=== PATIENT | female | born 1990 | race Caucasian/White ===

== ENCOUNTER 2018-01-14 18:41 | Emergency (ER) | payer SELFPAY ==
[2016-06-22 15:15] VITALS: BP 120/61
[~2018-01-14 18:41] MED LIST: CIPR500T94 PO; DIAZ5TAB PO; HYDR-971 PO; NITR100C62 PO; NORE-83 PO; PHEN-318 PO; SULF1TAB24 PO
== END 2018-01-14 18:50 | disposition left against medical advice (07) ==
LOC: ER 18:41
DX: R10.9 Unspecified abdominal pain (principal); Z53.21 Procedure and treatment not carried out due to patient leaving prior to being seen by health care provider

== ENCOUNTER 2018-02-01 03:23 | Emergency (ER) | payer SELFPAY ==
[~2018-02-01] VITALS: Ht 162.6 cm; Wt 54.4 kg
[2018-02-01] MEDS ORDERED: IV NORMAL SALINE 1,000ML 1,000 ML IV ONE (03:45)
[2018-02-01] MEDS ORDERED: ZIPRASIDONE IM 20 MG VIAL. IM ONE (04:15)
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
[2018-02-01 05:24] LABS: BASO # 0.1 x10^3/uL (0.0-0.2); BASO % 1 % (0-3); EOS # 0.4 x10^3/uL (0.0-0.7); EOS % 6 % (0-3); HEMATOCRIT 35.5 % (36.0-47.0); HEMOGLOBIN 11.9 g/dL (12.0-15.5); LYMPH # 3.3 x10^3/uL (1.0-4.8); LYMPH % 49 % (24-48); MEAN CORPUSCULAR HEMOGLOBIN 28 pg (25-35); MEAN CORPUSCULAR HGB CONC 33 g/dL (31-37); MEAN CORPUSCULAR VOLUME 84 fL (79-100); MONO # 0.5 x10^3/uL (0.0-1.1); MONO % 7 % (0-9); NEUT # 2.5 x10^3uL (1.8-7.7); NEUT % 37 % (31-73); PLATELET COUNT 436 x10^3/uL (140-400); RED BLOOD COUNT 4.21 x10^6/uL (3.50-5.40); RED CELL DISTRIBUTION WIDTH 16.4 % (11.5-14.5); WHITE BLOOD COUNT 6.7 x10^3/uL (4.0-11.0)
[2018-02-01 05:36] LABS: ALBUMIN 3.7 g/dL (3.4-5.0); ALBUMIN/GLOBULIN RATIO 0.9 (1.0-1.7); CREATININE 0.8 mg/dL (0.6-1.0); GFR 85.4; POTASSIUM 3.8 mmol/L (3.5-5.1); TOTAL BILIRUBIN 0.1 mg/dL (0.2-1.0); TOTAL PROTEIN 7.7 g/dL (6.4-8.2)
[2018-02-01 09:24] VITALS: BP 108/67
[2018-02-01 09:58] LABS: U PREG PATIENT NEGATIVE (NEG)
== END 2018-02-01 10:15 | disposition home or self-care (01) ==
LOC: ER 03:23
DX: F10.121 Alcohol abuse with intoxication delirium (principal); F17.210 Nicotine dependence, cigarettes, uncomplicated; Z87.440 Personal history of urinary (tract) infections; Z88.5 Allergy status to narcotic agent
CPT/HCPCS: 36415; 80053; 81025; 85025; 96372; 99284; G0480; J3486

== ENCOUNTER 2019-07-05 13:40 | Inpatient (IN) | payer SELFPAY ==
[~2019-07-05] VITALS: Ht 162.6 cm; Wt 54.0 kg
[~2019-07-05 13:40] MED LIST changes: +HYDR-3165 PO; -HYDR-971 PO
[2019-07-05] MEDS ORDERED: IPRATRPIUM/ALBUTEROL 0.5/2.5MG 3 ML NEBU. ONE (13:43)
[2019-07-05] MEDS ORDERED: DEXAMETHASONE 4 MG TABLET PO ONE (14:00)
[2019-07-05] MEDS ORDERED: IPRATRPIUM/ALBUTEROL 0.5/2.5MG 3 ML NEBU. NEB ONE ×2 (14:00→15:00)
--- NOTE | 2019-07-05 14:46 | RAD ---
CHEST PA LATERAL History: Cough, shortness of air Comparison: August 13, 2007 Findings: 2 views of the chest are submitted. There is no infiltrate, pneumothorax, or effusion. Pericardial cardiac silhouette is within normal limits in size. Impression: 1. There is no radiographic evidence of acute cardiopulmonary disease. Electronically signed by: Papa Miller MD (07/05/2019 2:43 PM) [facility]
--- NOTE | 2019-07-05 14:49 | PHYS DOC ---
Past History Past Medical History: Asthma, UTI Past Surgical History: No Surgical History Smoking: Quit Greater Than 1 Year Alcohol Use: Sober Drug Use: None Adult General Chief Complaint Chief Complaint: SHORTNESS OF BREATH HPI HPI 28-year-old female presents with 4 day history of progressive dyspnea and whe ezing. Patient with past medical history of asthma. Reports reports feels she cannot catch her breath. Reports some associated nasal congestion and subjective fever and chills. Denies known sick contacts. Patient does have history of former smoking. Denies . Denies trauma. Denies leg swelling or calf tenderness. Denies history of DVT or PE. Review of Systems Review of Systems Constitutional: Reports subjective fever and chills Eyes: Denies redness or eye pain HENT: Reports nasal congestion and sore throat Respiratory: Reports productive cough, wheezing, and shortness of breath Cardiovascular: Denies chest pain or palpitations GI: Denies abdominal pain, nausea, or vomiting : Denies dysuria or hematuria Musculoskeletal: Denies back pain or joint pain Integument: Denies rash or skin lesions Neurologic: Denies headache, focal weakness or sensory changes Complete systems were reviewed and found to be within normal limits, except as documented in this note. Current Medications Current Medications Current Medications Medications (Trade) Dose Ordered Sig/Santi Start Time Stop Time Status Last Admin Dose Admin Albuterol/ Ipratropium (Duoneb) 3 ml 1X ONCE 07/05/19 14:00 07/05/19 14:01 DC Dexamethasone (Decadron) 10 mg 1X ONCE 07/05/19 14:00 07/05/19 14:01 DC Allergies Allergies Allergies Coded Allergies Type Severity Reaction Last Updated Verified codeine Allergy Intermediate rash 03/12/14 Yes Physical Exam Physical Exam Constitutional: Well developed, well nourished, uncomfortable, non-toxic appearance HENT: Normocephalic, atraumatic, oropharynx moist, nasal congestion noted, TMs clear Eyes: Conjunctiva normal, no discharge Neck: Normal range of motion, no tenderness, supple Cardiovascular: Heart rate normal, regular rhythm Lungs & Thorax: Bilateral breath sounds diminished at bases, poor aeration, upper lobe scattered wheezing Abdomen: Soft, no tenderness Skin: Warm, dry, no erythema, no rash Extremities: No tenderness, ROM intact, no edema Neurologic: Alert and oriented X 3, no focal deficits noted Psychologic: Affect anxious, judgement normal EKG EKG [] Radiology/Procedures Radiology/Procedures PROCEDURE: CHEST PA & LATERAL CHEST PA LATERAL History: Cough, shortness of air Comparison: August 13, 2007 Findings: 2 views of the chest are submitted. There is no infiltrate, pneumothorax, or effusion. Pericardial cardiac silhouette is within normal limits in size. Impression: 1. There is no radiographic evidence of acute cardiopulmonary disease. Electronically signed by: Papa Miller MD (07/05/2019 2:43 PM) [facility] Course & Med Decision Making Course & Med Decision Making Pertinent Labs and Imaging studies reviewed. (See chart for details) Patient presents with history of present illness and physical exam consistent for bronchitis. Patient with history of asthma. Reports home nebulizer treatments are not helping. Patient was hypoxic down to high 80% on room air upon arrival. DuoNeb provided with improvement of oxygen saturations. Empiric steroid also given. Patient noted continued sensation of difficulty with breathing. Labs obtained and posted to chart. Chest x-ray without acute process. Given patient's continued symptoms decision to admit for further evaluation and treatment. Discussed with Dr. Dejesus (hospitalist) who is in agreement with admission. Discussed findings and plan with patient, who acknowledges understanding and agreement. Dragon Disclaimer Dragon Disclaimer This electronic medical record was generated, in whole or in part, using a voice recognition dictation system. Departure Departure: Impression: Primary Impression: Bronchitis Additional Impression: Asthma Disposition: ADMITTED INPATIENT Admitting Physician: Kerry Dejesus Condition: STABLE Referrals: PCP,NO (PCP) Problem Qualifiers Additional Impression: Asthma Asthma severity: moderate Asthma persistence: persistent Asthma compli cation type: unspecified Qualified Codes: J45.40 - Moderate persistent asthma, uncomplicated SARAEDIS Lou CAMACHO Jul 05, 2019 14:49
[2019-07-05] MEDS ORDERED: AZITHROMYCIN 500 MG in IV NORMAL SALINE 250ML 250 ML IV ONE (15:00)
[2019-07-05] MEDS ORDERED: IV NORMAL SALINE 1,000ML 1,000 ML IV ONE (15:00)
[2019-07-05] MEDS ORDERED: ACETAMINOPHEN 325 MG TABLET PO PRN (15:00)
[2019-07-05 15:02] LABS: BASO % 0 % (0-3); EOS # 0.7 x10^3/uL (0.0-0.7); EOS % 8 % (0-3); HEMATOCRIT 45.9 % (36.0-47.0); HEMOGLOBIN 14.9 g/dL (12.0-15.5); LYMPH # 1.4 x10^3/uL (1.0-4.8); LYMPH % 16 % (24-48); MEAN CORPUSCULAR HEMOGLOBIN 29 pg (25-35); MEAN CORPUSCULAR HGB CONC 32 g/dL (31-37); MEAN CORPUSCULAR VOLUME 90 fL (79-100); MONO # 0.6 x10^3/uL (0.0-1.1); MONO % 6 % (0-9); NEUT # 6.5 x10^3uL (1.8-7.7); NEUT % 71 % (31-73); PLATELET COUNT 297 x10^3/uL (140-400); RED BLOOD COUNT 5.11 x10^6/uL (3.50-5.40); RED CELL DISTRIBUTION WIDTH 14.2 % (11.5-14.5); WHITE BLOOD COUNT 9.2 x10^3/uL (4.0-11.0)
[2019-07-05 15:09] LABS: ALBUMIN 4.2 g/dL (3.4-5.0); CALCIUM 8.8 mg/dL (8.5-10.1); CREATININE 0.7 mg/dL (0.6-1.0); GFR 98.9; MAGNESIUM 2.1 mg/dL (1.8-2.4); TOTAL BILIRUBIN 0.4 mg/dL (0.2-1.0); TOTAL PROTEIN 8.6 g/dL (6.4-8.2)
[2019-07-05 15:10] LABS: POTASSIUM 4.1 mmol/L (3.5-5.1)
[2019-07-05] MEDS ORDERED: IV NORMAL SALINE 50ML 50 ML ONE (15:10)
[2019-07-05] MEDS ORDERED: AZITHROMYCIN 500 MG VIAL. IV ONE (15:10)
[2019-07-05] MEDS ORDERED: IV NORMAL SALINE 250ML 250 ML ONE (15:10)
[2019-07-05] MEDS ORDERED: cefTRIAXone SODIUM 1 GM VIAL ONE (15:10)
--- NOTE | 2019-07-05 15:48 | NUR ---
Patient arrived to unit via EMS. Patient is pleasant and cooperative with assessment. Patient is oriented to unit and policies. Patient is offered flu shot and refused. Patient is resting in bed at this time and reports pain 7/10 in R back related to coughing as well as a headache. Patient is resting in room at this time. Will continue to monitor.
[2019-07-05 16:07] VITALS: BP 136/88
[2019-07-05] MEDS ORDERED: ALBU2.5V5 NEB (16:12)
[2019-07-05] MEDS ORDERED: ALBU2.5V8 IH (16:12)
[2019-07-05] MEDS ORDERED: IBUPROFEN 800 MG TABLET. PO PRN (16:45)
[2019-07-05] MEDS: IPRATRPIUM/ALBUTEROL 0.5/2.5MG 3 ML NEBU. NEB SCH ×2 (17:42→21:43)
[2019-07-05 19:00] VITALS: BP_SYST 123; BP_SYST 146; BP_DIAS 70; BP_DIAS 82
[2019-07-05] MEDS ORDERED: diphenhydrAMINE HCL 25 MG CAPSULE PO PRN (20:45)
[2019-07-05 23:44] VITALS: BP 115/58
[2019-07-06] MEDS: IPRATRPIUM/ALBUTEROL 0.5/2.5MG 3 ML NEBU. NEB SCH ×2 (05:20→12:01)
[2019-07-06 06:44] VITALS: BP 122/74
[2019-07-06 11:08] VITALS: BP 123/62
--- NOTE | 2019-07-06 12:23 | NUR ---
pt discharged from hospital, verbalized understanding of instructions and new medications, iv d/c'd, pt off the unit ambulatory.
--- NOTE | 2019-07-06 13:56 | SSS ---
ADMIT DATE: HISTORY OF PRESENT ILLNESS: The patient is a 28-year-old female patient, who came to the Emergency Room complaining of 4 days' history of progressive dyspnea and wheezing. She has a past medical history significant for bronchial asthma. Reports that she feels she cannot catch her breath. She has some associated nasal congestion, subjective fever, and chills. She was evaluated extensively in the Emergency Room. Her lab work was unremarkable, no leukocytosis. Chest x-ray was unremarkable and was admitted with acute severe asthma. Treated with IV steroids as well as antibiotic in the form of Zithromax as well as ceftriaxone. She received also a dose of dexamethasone and was admitted for observation. PAST MEDICAL HISTORY: Significant for bronchial asthma. She also has a history of SLE, in remission. PAST SURGICAL HISTORY: Significant for . ALLERGIES: She is allergic to CODEINE, she developed anaphylactic shock. MEDICATIONS: She is currently on albuterol inhaler 2 puffs every 4-6 hours and albuterol sulfate by nebulizer solution every 4 hours. FAMILY HISTORY: She is the only child. Her father is alive at the age of 58 and healthy. Mother is alive. She has rheumatoid arthritis and ovarian cancer. SOCIAL HISTORY: She is single. She has 1 son. She quit smoking 6 months ago. Drinks alcohol occasionally and uses marijuana occasionally. 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 REVIEW OF SYSTEMS: As per history of present illness. PHYSICAL EXAMINATION GENERAL: When I examined her this morning, she was sitting slightly propped up in bed, in no apparent distress. No pallor, jaundice, cyanosis, or thyromegaly. No jugular venous distention. No lower limb edema. VITAL SIGNS: Her heart rate was 101, blood pressure was 123/62, temperature was 97.8, respiratory rate was 18, and oxygen saturation was 94% on room air. HEAD, EYES, EARS, NOSE, AND THROAT: Showed normocephalic and atraumatic. NECK: Supple. HEART: Showed normal first and second heart sounds. No gallop, rub, or murmur. CHEST: Clear to auscultation. No crepitation or rhonchi. ABDOMEN: Distended, soft, and nontender. NEUROLOGIC: She was awake, alert, and responding appropriately. All cranial nerves intact. EXTREMITIES: She moves extremities without difficulty. She ambulates without assistance or assistive devices. LABORATORY WORK: On admission showed a white cell count of 9200, hemoglobin 15, hematocrit 45, MCV 90, platelet count 297,000 with normal manual differential, did have 8% eosinophils. Her chemistry showed a serum sodium 141, potassium 4.1, chloride 103, bicarbonate 25, anion gap of 13, BUN 6, creatinine 0.7, estimated GFR was 98 mL per minute. Her glucose was ____, calcium was 8.8, and magnesium was 2.1. Total bilirubin, AST, ALT, and alkaline phosphatase were normal. Total protein was 8.6 and albumin was 4.2. Her chest x-ray showed that there is no infiltrate, pneumothorax, or effusion. Pericardial cardiac silhouette is within normal limits in size. ASSESSMENT AND PLAN: The patient will be discharged home to continue on tapering course of steroids in the form of Medrol Dosepak as well as Zithromax. FINAL DISCHARGE DIAGNOSES: Acute asthma exacerbation, resolved. She has also history of systemic lupus erythematosus in remission. ELLIE FULLER MD DR: BRITT/alex JOB#: [id number] / [id number]
== END 2019-07-06 12:54 | disposition home or self-care (01) | DRG 203 ==
LOC: ER 13:40 → 1 SOUTH 15:07
PROVIDERS: ADMIT Internal Medicine; ATTEND Internal Medicine
DX: J45.901 Unspecified asthma with (acute) exacerbation (principal); M32.9 Systemic lupus erythematosus, unspecified; F12.90 Cannabis use, unspecified, uncomplicated; Z88.5 Allergy status to narcotic agent; Z87.891 Personal history of nicotine dependence; Z80.41 Family history of malignant neoplasm of ovary; Z82.61 Family history of arthritis
CPT/HCPCS: 36415; 71046; 80053; 83735; 85025; 87040; 87070; 87205; 94640; 96365; 96368; J0456; J0696; J7050; J7620; J8540; Q0163; 99285-25; J7030

== ENCOUNTER 2019-09-10 16:33 | Emergency (ER) | payer SELFPAY ==
[~2019-09-10] VITALS: Ht 167.6 cm; Wt 68.7 kg
[~2019-09-10 16:33] MED LIST changes: +ALBU2.5V5 NEB; +ALBU2.5V8 IH
[2019-09-10 17:02] VITALS: BP 136/77
[2019-09-10] MEDS ORDERED: CEPH500C PO (17:43)
--- NOTE | 2019-09-10 17:53 | PHYS DOC ---
Past History Past Medical History: Asthma, UTI Additional Past Medical Histor: LUPUS Past Surgical History: Smoking: Quit Greater Than 1 Year Alcohol Use: Occasionally Drug Use: Marijuana Adult General Chief Complaint Chief Complaint: INSECT BITE HPI HPI Patient is a 29-year-old female presents with a lesion on the left cheek she is worried about a possible spider bite she does see recluse spiders around her house fairly regularly. She does not recall a specific bite but she did wake up and she noticed this lesion on her face. She was very worried about her recluse so she came into the emergency room for evaluation systemically she feels fine no fever no vomiting no body aches no headache really just a spot on her cheek using Neosporin it's been there for 2-3 days now. Review of Systems Review of Systems Constitutional: Denies fever or chills [] Eyes: Denies change in visual acuity, redness, or eye pain [] HENT: Denies nasal congestion or sore throat [] Respiratory: Denies cough or shortness of breath [] Cardiovascular: No additional information not addressed in HPI [] GI: Denies abdominal pain, nausea, vomiting, bloody stools or diarrhea [] : Denies dysuria or hematuria [] Musculoskeletal: Denies back pain or joint pain [] Integument: Neurologic: Denies headache, focal weakness or sensory changes [] Endocrine: Denies polyuria or polydipsia [] All other systems were reviewed and found to be within normal limits, except as documented in this note. Allergies Allergies Allergies Coded Allergies Type Severity Reaction Last Updated Verified codeine Allergy Intermediate rash 03/12/14 Yes Physical Exam Physical Exam Constitutional: Well developed, well nourished, no acute distress, non-toxic appearance. [] HENT: Normocephalic, atraumatic, bilateral external ears normal, oropharynx moist, no oral exudates, nose normal. [] Eyes: PERRLA, EOMI, conjunctiva normal, no discharge. [] Abdomen: Bowel sounds normal, soft, no tenderness, no masses, no pulsatile masses. [] Skin: There is an approximately 1.5 cm area of some erythema with a central scab no necrosis seen no fluctuance overall appears fairly mild on the left cheek. Extremities: No tenderness, no cyanosis, no clubbing, ROM intact, no edema. [] Neurologic: Alert and oriented X 3, normal motor function, normal sensory function, no focal deficits noted. [] Psychologic: Affect normal, judgement normal, mood normal. [] Current Patient Data Vital Signs Vital Signs Date Time Temp Pulse Resp B/P (MAP) Pulse Ox O2 Delivery O2 Flow Rate FiO2 09/10/19 17:02 97.8 75 16 100 Room Air EKG EKG [] Radiology/Procedures Radiology/Procedures [] Course & Med Decision Making Course & Med Decision Making Pertinent Labs and Imaging studies reviewed. (See chart for details) []Patient is a scabbed over lesion on her left cheek I doubt it's a brown recluse spider bite but overall is fairly mild at this time no aggressive intervention necessary trial of Keflex local wound care was instructed and return precautions discussed patient voiced understanding. Dragon Disclaimer Dragon Disclaimer This electronic medical record was generated, in whole or in part, using a voice recognition dictation system. Departure Departure: Impression: Primary Impression: Cellulitis Disposition: HOME, SELF-CARE Condition: STABLE Patient Instructions: Cellulitis, [id number] Scripts Cephalexin (CEPHALEXIN) 500 Mg Capsule 1 CAP PO QID for skin, #40 CAP Prov: MORENITA YOUNG MD 09/10/19 MORENITA YOUNG MD Sep 10, 2019 17:53
== END 2019-09-10 17:53 | disposition home or self-care (01) ==
LOC: ER 16:33
DX: L03.211 Cellulitis of face (principal); J45.909 Unspecified asthma, uncomplicated; Z87.440 Personal history of urinary (tract) infections; Z87.891 Personal history of nicotine dependence; Z88.5 Allergy status to narcotic agent
CPT/HCPCS: 99283

== ENCOUNTER 2019-10-02 02:00 | Emergency (ER) | payer SELFPAY ==
[~2019-10-02] VITALS: Ht 167.6 cm; Wt 68.7 kg
[~2019-10-02 02:00] MED LIST changes: +CEPH500C PO
[2019-10-02] MEDS ORDERED: IPRATRPIUM/ALBUTEROL 0.5/2.5MG 3 ML NEBU. ONE (02:03)
[2019-10-02 02:04] VITALS: BP 141/96
[2019-10-02] MEDS ORDERED: IPRATRPIUM/ALBUTEROL 0.5/2.5MG 3 ML NEBU. NEB ONE (02:15)
--- NOTE | 2019-10-02 02:20 | PHYS DOC ---
Past History Past Medical History: Asthma, UTI Additional Past Medical Histor: LUPUS Past Surgical History: Smoking: Cigarettes, Quit Greater Than 1 Year Alcohol Use: None Drug Use: Marijuana Adult General Chief Complaint Chief Complaint: ASTHMA HPI HPI 29-year-old female with past medical history of asthma presents with report of sudden wheezing and shortness of air. Reports exposure to animal dander from dogs. Patient reports she was unable to use a rescue inhaler as she had previously given it to her son. Denies leg swelling or calf tenderness. Denies rash. Denies swelling. Denies . Patient reports she feels that she has worse allergies when her lupus is flared. Review of Systems Review of Systems Constitutional: Denies fever or chills Eyes: Denies redness or eye pain HENT: Denies nasal congestion or sore throat Respiratory: Denies cough; reports wheezing and shortness of breath Cardiovascular: Denies chest pain or palpitations GI: Denies abdominal pain, nausea, or vomiting : Denies dysuria or hematuria Musculoskeletal: Denies back pain or joint pain Integument: Denies rash or skin lesions Neurologic: Denies headache, focal weakness or sensory changes Complete systems were reviewed and found to be within normal limits, except as documented in this note. Current Medications Current Medications Current Medications Medications (Trade) Dose Ordered Sig/Santi Start Time Stop Time Status Last Admin Dose Admin Albuterol/ Ipratropium (Duoneb) 3 ml 1X ONCE 10/02/19 02:15 10/02/19 02:16 UNV Allergies Allergies Allergies Coded Allergies Type Severity Reaction Last Updated Verified codeine Allergy Intermediate rash 03/12/14 Yes Physical Exam Physical Exam Constitutional: Well developed, well nourished, mild respiratory distress HENT: Normocephalic, atraumatic, oropharynx moist Eyes: Conjunctiva normal, no discharge Neck: Normal range of motion, no tenderness, supple Cardiovascular: Heart rate normal, regular rhythm Lungs & Thorax: Bilateral breath sounds equal with diffuse wheezing, mild respi ratory distress Abdomen: Soft, no tenderness Skin: Warm, dry, no erythema, no rash Extremities: No tenderness, ROM intact, no edema Neurologic: Alert and oriented X 3, no focal deficits noted Psychologic: Affect anxious, judgment normal Current Patient Data Vital Signs Vital Signs Date Time Temp Pulse Resp B/P (MAP) Pulse Ox O2 Delivery O2 Flow Rate FiO2 10/02/19 02:04 134 36 141/96 (111) 96 Room Air EKG EKG [] Radiology/Procedures Radiology/Procedures [] Course & Med Decision Making Course & Med Decision Making Patient with past medical history of asthma presents with history of present illness and physical exam consistent for asthma exacerbation. Mild respiratory distress noted with wheezing. Respiratory neb given. Empiric steroid provided. Patient with interval improvement of symptoms. Patient stable for discharge with outpatient follow-up with PCP. Discussed findings and plan with patient, who acknowledges understanding and agreement. Dragon Disclaimer Dragon Disclaimer This electronic medical record was generated, in whole or in part, using a voice recognition dictation system. Departure Departure: Impression: Primary Impression: Asthma exacerbation Disposition: HOME, SELF-CARE Condition: IMPROVED Referrals: PCP,DEUCE (PCP) Patient Instructions: Asthma, Adult, [id number] Scripts Prednisone (PREDNISONE) 20 Mg Tablet 2 TAB PO DAILY for asthma, #8 TAB Start this medication tomorrow, Sunday10/03/2019 Prov: EDIS RUIZ DO 10/02/19 Albuterol Sulfate (PROAIR HFA INHALER) 8.5 Gm Hfa.aer.ad 2 PUFF IH PRN Q4-6HRS PRN for wheezing, #1 INHALER 0 Refills Prov: EDIS RUIZ DO 10/02/19 Problem Qualifiers Primary Impression: Asthma exacerbation Asthma severity: mild Asthma persistence: intermittent Qualified Codes: J45.21 - Mild intermittent asthma with (acute) exacerbation EDIS RUIZ DO Oct 02, 2019 02:20
[2019-10-02] MEDS ORDERED: ALBU2.5V8 IH (02:25)
[2019-10-02] MEDS ORDERED: PRED20TA PO (02:25)
[2019-10-02] MEDS ORDERED: DEXAMETHASONE 4 MG TABLET PO ONE (02:30)
== END 2019-10-02 02:30 | disposition home or self-care (01) ==
LOC: ER 02:00
DX: J45.901 Unspecified asthma with (acute) exacerbation (principal); F17.210 Nicotine dependence, cigarettes, uncomplicated; Z88.5 Allergy status to narcotic agent
CPT/HCPCS: 99283; J7620; J8540